=== PATIENT | male | born 1975 | race Caucasian/White ===

== ENCOUNTER 2017-06-28 13:13 | Emergency (ER) | payer OTHER ==
[~2017-06-28] VITALS: Ht 182.9 cm; Wt 101.6 kg
[~2017-06-28 13:13] MED LIST: BACTRIM DS TAB1 EACH PO; DIPHENOXYLATE-A60 ML PO; FLAGYL500 MG PO; IBUPROFEN200 M1 PO; LEXAPRO10 MG PO; LORTAB 5-325 M1 EACH PO; MINIPRESS1 MG PO; NAPROXEN500 MG PO; NORCO 5-325 TA1 EACH PO; PERCOCET 5-3251 EACH PO; QUETIAPINE FUMA50 MG PO; ROBAXIN-750750 MG PO; SEROQUEL25 MG PO; WELLBUTRIN SR150 MG PO; XANAX0.5 MG PO; ZYPREXA2.5 MG PO
[2017-06-28] MEDS ORDERED: VISTARIL25 MG PO (13:22)
[2017-06-28] MEDS ORDERED: IBUPROFEN200 M1 PO (13:23)
== END 2017-06-28 14:50 | disposition home or self-care (01) ==
LOC: ED 13:13
DX: S83.92XA Sprain of unspecified site of left knee, initial encounter (principal); F17.200 Nicotine dependence, unspecified, uncomplicated; Z98.890 Other specified postprocedural states; Z79.899 Other long term (current) drug therapy; Z88.0 Allergy status to penicillin; X50.0XXA Overexertion from strenuous movement or load, initial encounter
CPT/HCPCS: 73560; 99283